=== PATIENT | female | born 1995 | race Hispanic/Latino ===

== ENCOUNTER 2021-08-12 20:48 | Emergency (ER) | payer MEDICAID, OTHER ==
[~2021-08-12] VITALS: Ht 157.5 cm; Wt 54.4 kg
[2021-08-12] MEDS ORDERED: FAMOTIDINE 20MG TAB PO ONE (23:30)
[2021-08-12] MEDS ORDERED: SOLU-MEDROL 125MG VIAL IM ONE (23:30)
[2021-08-12] MEDS ORDERED: HYDROXYZINE 25 MG TABLET PO ONE (23:30)
[2021-08-12] MEDS ORDERED: DIPH25 PO (23:52)
[2021-08-12] MEDS ORDERED: PRED20TA3 PO (23:52)
[2021-08-12] MEDS ORDERED: FAMO-136 PO (23:52)
[2021-08-13 00:17] VITALS: BP 116/76
== END 2021-08-13 00:18 | disposition home or self-care (01) ==
LOC: EDH 20:48
DX: L50.9 Urticaria, unspecified (principal); Z79.52 Long term (current) use of systemic steroids
CPT/HCPCS: 96372; 99283; J2930